=== PATIENT | male | born 1965 | race Caucasian/White ===

== ENCOUNTER 2017-03-03 13:04 | Emergency (ER) | payer BC ==
[2017-03-03] MEDS ORDERED: SODIUM CHLORIDE 0.9% 1,000 ML IV STA (13:16)
[2017-03-03] MEDS ORDERED: KETOROLAC 30 MG/ML 1 ML VIAL IVP STA (13:27)
--- NOTE | 2017-03-03 13:36 | ED ---
Abdominal Pain HPI - General Chief Complaint: Abdominal Pain Stated Complaint: kidney stone Source: patient, RN notes reviewed Mode of arrival: ambulatory Limitations: no limitations - History of Present Illness Initial Comments: 51-year-old male presents emergency Department with chief complaint of right flank pain. Patient states pain started on Sunday progressive worse. Patient states it started in one 5 aspect of his abdomen states now right flank pain. Patient states his head history kidney stones and the pain seems similar. Patient still had some nausea vomiting. He also states that he said decreased urine output and some hesitancy. Denies any dysuria, fever, chills, diarrhea constipation. Patient has no chest pain or shortness of breath. Patient states nothing makes the pain feel better or worse at this time. Patient did admit that the pain waxes and wanes. - Related Data Previous Rx's Medication Instructions Recorded Ciprofloxacin HCl [Cipro] 500 mg PO Q12HR #14 tablet 03/03/17 Hydrocodone/Acetaminophen [[place] 1 tab PO Q6HR PRN #20 tab 03/03/17 5-325] Ondansetron Odt [Zofran Odt] 4 mg PO Q8HR PRN #10 tab 03/03/17 Tamsulosin [Flomax] 0.4 mg PO DAILY #7 cap 03/03/17 Allergies Allergy/AdvReac Type Severity Reaction Status Date / Time No Known Allergies Allergy Verified 03/03/17 14:19 Review of Systems ROS Statement: Those systems with pertinent positive or pertinent negative responses have been documented in the HPI. ROS Other: All systems not noted in ROS Statement are negative. Past Medical History Past Medical History: No Reported History Additional Past Medical History / Comment(s): kidney stones History of Any Multi-Drug Resistant Organisms: None Reported Past Surgical History: No Surgical Hx Reported Past Psychological History: No Psychological Hx Reported Smoking Status: Never smoker Past Alcohol Use History: None Reported Past Drug Use History: None Reported General Exam Limitations: no limitations General appearance: alert, in no apparent distress Respiratory exam: Present: normal lung sounds bilaterally. Absent: respiratory distress, wheezes, rales, rhonchi, stridor Cardiovascular Exam: Present: regular rate, normal rhythm, normal heart sounds. Absent: systolic murmur, diastolic murmur, rubs, gallop, clicks GI/Abdominal exam: Present: soft, tenderness (Mild tenderness right flank), normal bowel sounds. Absent: distended, guarding, rebound, rigid Back exam: Absent: CVA tenderness (R), CVA tenderness (L) Neurological exam: Present: alert, oriented X3, CN II-XII intact Skin exam: Present: warm, dry, intact, normal color. Absent: rash Course Vital Signs 03/03/17 13:06 Temperature 97.4 F L Pulse Rate 91 Respiratory 16 Rate Blood Pressure 168/87 O2 Sat by Pulse 99 Oximetry Medical Decision Making - Medical Decision Making 51-year-old male present emergency from for right flank pain. Patient is a 5 mm stone on x-ray. Patient has white cells concern from possible early signs of infection. Patient with an antibiotic given pain medication if his symptoms return. Patient states is essentially pain-free at this time. Patient's had no reported fever afebrile here. Patient will follow-up with urology if symptoms do not improve return parameters discussed - Lab Data Result diagrams: 03/03/17 13:30 03/03/17 13:30 Lab Results 03/03/17 03/03/17 03/03/17 Range/Units 13:30 13:30 14:11 WBC 8.6 (3.8-10.6) k/uL RBC 4.67 (4.30-5.90) m/uL Hgb 14.5 (13.0-17.5) gm/dL Hct 40.8 (39.0-53.0) % MCV 87.3 (80.0-100.0) fL MCH 31.1 (25.0-35.0) pg MCHC 35.6 (31.0-37.0) g/dL RDW 13.3 (11.5-15.5) % Plt Count 184 (150-450) k/uL Neutrophils % 86 % Lymphocytes % 8 % Monocytes % 5 % Eosinophils % 0 % Basophils % 0 % Neutrophils # 7.4 (1.3-7.7) k/uL Lymphocytes # 0.7 L (1.0-4.8) k/uL Monocytes # 0.4 (0-1.0) k/uL Eosinophils # 0.0 (0-0.7) k/uL Basophils # 0.0 (0-0.2) k/uL Sodium 141 (137-145) mmol/L Potassium 4.3 (3.5-5.1) mmol/L Chloride 105 (98-107) mmol/L Carbon Dioxide 27 (22-30) mmol/L Anion Gap 9 mmol/L BUN 16 (9-20) mg/dL Creatinine 1.20 (0.66-1.25) mg/dL Est GFR (MDRD) Af Amer >60 (>60 ml/min/1.73 sqM) Est GFR (MDRD) Non-Af >60 (>60 ml/min/1.73 sqM) Glucose 80 (74-99) mg/dL Calcium 9.7 (8.4-10.2) mg/dL Total Bilirubin 1.8 H (0.2-1.3) mg/dL AST 24 (17-59) U/L ALT 32 (21-72) U/L Alkaline Phosphatase 76 (38-126) U/L Total Protein 7.4 (6.3-8.2) g/dL Albumin 4.5 (3.5-5.0) g/dL Amylase 32 (30-110) U/L Lipase 56 (23-300) U/L Urine Color Yellow Urine Appearance Clear (Clear) Urine pH 5.0 (5.0-8.0) Ur Specific [place] 1.020 (1.001-1.035) Urine Protein Trace H (Negative) Urine Glucose (UA) Negative (Negative) Urine Ketones Negative (Negative) Urine Blood Negative (Negative) Urine Nitrite Negative (Negative) Urine Bilirubin Negative (Negative) Urine Urobilinogen <2.0 (<2.0) mg/dL Ur Leukocyte Esterase Small H (Negative) Urine WBC 8 H (0-5) /hpf Ur Squamous Epith Cells 1 (0-4) /hpf Hyaline Casts 18 H (0-2) /lpf Urine Mucus Moderate H (None) /hpf Disposition Clinical Impression: Kidney stone Disposition: HOME SELF-CARE Condition: Stable Instructions: Kidney Stones (ED) Additional Instructions: Please return to the Emergency Department if symptoms worsen or any other concerns. Prescriptions: Ciprofloxacin HCl [Cipro] 500 mg PO Q12HR #14 tablet Hydrocodone/Acetaminophen [[place] 5-325] 1 tab PO Q6HR PRN #20 tab PRN Reason: Pain Ondansetron Odt [Zofran Odt] 4 mg PO Q8HR PRN #10 tab PRN Reason: Nausea Tamsulosin [Flomax] 0.4 mg PO DAILY #7 cap Referrals: None,Stated [Primary Care Provider] - 1-2 days Time of Disposition: 15:01
[2017-03-03 13:42] LABS: Basophils % (A) 0 %; CH 30.6; CHCM 35.2; Eosinophils % (A) 0 %; HCT 40.8 % (39.0-53.0); HDW 2.63; HGB 14.5 gm/dL (13.0-17.5); Luc # (Auto) 0.08; Luc % (Auto) 1; Lymphocytes # (A) 0.7 k/uL (1.0-4.8); Lymphocytes % (A) 8 %; MCH 31.1 pg (25.0-35.0); MCHC 35.6 g/dL (31.0-37.0); MCV 87.3 fL (80.0-100.0); Mean Platelet Volume 8.3; Monocytes # (A) 0.4 k/uL (0-1.0); Monocytes % (A) 5 %; Neutrophils # (A) 7.4 k/uL (1.3-7.7); Neutrophils % (A) 86 %; RBC 4.67 m/uL (4.30-5.90); RDW 13.3 % (11.5-15.5); WBC 8.6 k/uL (3.8-10.6)
[2017-03-03 13:53] LABS: ALT 32 U/L (21-72); AST 24 U/L (17-59); Alkaline Phosphatase 76 U/L (38-126); Amylase 32 U/L (30-110); Anion Gap 9 mmol/L; Blood Urea Nitrogen 16 mg/dL (9-20); Calcium 9.7 mg/dL (8.4-10.2); Carbon Dioxide 27 mmol/L (22-30); Chloride 105 mmol/L (98-107); Glucose 80 mg/dL (74-99); Non-African American GFR(MDRD) >60 (>60 ml/min/1.73 sqM); Potassium 4.3 mmol/L (3.5-5.1); Sodium 141 mmol/L (137-145); Total Bilirubin 1.8 mg/dL (0.2-1.3); Total Protein 7.4 g/dL (6.3-8.2)
--- NOTE | 2017-03-03 13:58 | XR ---
EXAMINATION TYPE: XR KUB DATE OF EXAM: 03/03/2017 COMPARISON: 10/28/2012 HISTORY: Abdominal pain TECHNIQUE: 2 views FINDINGS: Bowel gas pattern is normal. There is no sign of intestinal obstruction or pneumoperitoneum . Fecal pattern is normal. There is possible 5 mm calcification over the right kidney. Lung bases are clear. There is no sign of a mass. IMPRESSION: Possible right renal calculus that appears new compared to old exam. There is clearing of calcification over the left kidney compared to old exam.
[2017-03-03] MEDS ORDERED: SODIUM CHLORIDE 0.9% 1,000 ML IV ONE (14:12)
[2017-03-03 14:37] LABS: Appearance,Urine Clear (Clear); Bilirubin,Urine Negative (Negative); Glucose,Urine (UA) Negative (Negative); Ketones,Urine Negative (Negative); Leukocyte Esterase,Urine Small (Negative); Mucus,Urine Moderate /hpf; Nitrite,Urine Negative (Negative); Particle Count 5173; Protein,Urine Trace (Negative); Squamous Epithelial Cell,Urine 1 /hpf (0-4); UA Billing (MACRO vs. MICRO) MICRO; Urobilinogen,Urine <2.0 mg/dL (<2.0); WBC,Urine 8 /hpf (0-5)
[2017-03-03 15:13] VITALS: BP 134/87; PULSE 70; RESP 18; TEMP 98.3
== END 2017-03-03 15:19 | disposition home or self-care (01) ==
LOC: EC 13:04
DX: N20.0 Calculus of kidney (principal); R11.2 Nausea with vomiting, unspecified
CPT/HCPCS: 99284; 96374; 96361 ×2; 51798; 36415; 80053; 82150; 83690; 85025; 81001; 87086; 74000; J1885

== ENCOUNTER 2017-12-07 04:09 | Emergency (ER) | payer BC ==
[2017-12-07] MEDS ORDERED: ONDANSETRON 4 MG/2 ML VIAL IVP STA (04:50)
[2017-12-07] MEDS ORDERED: MORPHINE SULFATE 4 MG/0.8 ML SYRINGE (INJ) IV STA (04:50)
[2017-12-07] MEDS ORDERED: SODIUM CHLORIDE 0.9% 2,000 ML IV STA (04:50)
[2017-12-07] MEDS ORDERED: SODIUM CHLORIDE 0.9% 1,000 ML IV STA (04:50)
[2017-12-07 05:07] LABS: Basophils % (A) 0 %; Eosinophils % (A) 1 %; HCT 41.4 % (39.0-53.0); HGB 14.5 gm/dL (13.0-17.5); Lymphocytes # (A) 0.5 k/uL (1.0-4.8); Lymphocytes % (A) 8 %; MCH 29.3 pg (25.0-35.0); MCV 83.6 fL (80.0-100.0); Mean Platelet Volume 7.3; Monocytes # (A) 0.3 k/uL (0-1.0); Monocytes % (A) 5 %; Neutrophils # (A) 5.9 k/uL (1.3-7.7); Neutrophils % (A) 86 %; Platelet Count 184 k/uL (150-450); RBC 4.96 m/uL (4.30-5.90); RDW 12.7 % (11.5-15.5); WBC 6.9 k/uL (3.8-10.6)
[2017-12-07 05:18] LABS: ALT 28 U/L (21-72); AST 22 U/L (17-59); Albumin 4.5 g/dL (3.5-5.0); Alkaline Phosphatase 76 U/L (38-126); Amylase 43 U/L (30-110); Anion Gap 14 mmol/L; Blood Urea Nitrogen 17 mg/dL (9-20); C Reactive Protein 5.1 mg/L (<10.0); Calcium 9.7 mg/dL (8.4-10.2); Carbon Dioxide 25 mmol/L (22-30); Chloride 102 mmol/L (98-107); Glucose 171 mg/dL (74-99); Lipase 58 U/L (23-300); Potassium 3.9 mmol/L (3.5-5.1); Sodium 141 mmol/L (137-145); Total Bilirubin 1.3 mg/dL (0.2-1.3); Total Protein 7.1 g/dL (6.3-8.2)
[2017-12-07 05:23] VITALS: RESP 18
--- NOTE | 2017-12-07 05:51 | CT ---
EXAM: CT Abdomen and Pelvis Without Intravenous Contrast CLINICAL HISTORY: Right flank pain TECHNIQUE: Axial computed tomography images of the abdomen and pelvis without intravenous contrast. CTDI is 10 mGy and DLP is 600 mGy-cm. This CT exam was performed using one or more of the following dose reduction techniques: automated exposure control, adjustment of the mA and/or kV according to patient size, and/or use of iterative reconstruction technique. COMPARISON: June 07, 2017. FINDINGS: Lung bases: Unremarkable. No mass. No consolidation. ABDOMEN: Liver: Unremarkable. Gallbladder and bile ducts: Unremarkable. No calcified stones. No ductal dilation. Pancreas: Unremarkable. No ductal dilation. Spleen: Unremarkable. No splenomegaly. Adrenals: Unremarkable. No mass. Kidneys and ureters: 1 cm stone at the junction of the proximal and middle thirds of the right ureter resulting in mild right hydronephrosis with perinephric stranding. Nonobstructive left renal stones. Bilateral renal cysts. Stomach and bowel: Unremarkable. No obstruction. No mucosal thickening. PELVIS: Appendix: Normal appendix. Bladder: Unremarkable. No stones. Reproductive: Unremarkable as visualized. ABDOMEN and PELVIS: Intraperitoneal space: Unremarkable. No free air. No significant fluid collection. Bones/joints: No acute fracture. No dislocation. Soft tissues: Unremarkable. Vasculature: Unremarkable. No abdominal aortic aneurysm. Lymph nodes: Unremarkable. No enlarged lymph nodes. IMPRESSION: 1 cm obstructive stone at the junction of the proximal and middle thirds of the right ureter with mild right hydronephrosis. Underlying infection not excluded. Nonobstructive bilateral renal stones. Normal appendix.
[2017-12-07] MEDS ORDERED: cefTRIAXone 2,000 MG in SODIUM CHLORIDE 0.9% 100 ML IVPB STA (06:09)
--- NOTE | 2017-12-07 06:15 | ED ---
Abdominal Pain HPI - General Chief Complaint: Abdominal Pain Stated Complaint: Male Time Seen by Provider: 12/07/17 04:44 Source: patient, family Mode of arrival: ambulatory Limitations: no limitations - History of Present Illness Initial Comments: 52 years old male with a history of for kidney stone presents with right flank pain, pain radiates down to THE right groin area this started down since 9 PM last night he been nauseous him a he threw up twice and he feels that there is stone since his previous pain was quite similar. He denies any headaches no neck pain no chest pain or shortness of breath doesn't abdominal pain or flank pain he said he been having hard time voiding no symptoms of TIA or CVA - Related Data Previous Rx's Medication Instructions Recorded Ciprofloxacin HCl [Cipro] 500 mg PO Q12HR #14 tablet 12/07/17 HYDROmorphone [Dilaudid] 1 mg PO Q4HR PRN #15 tab 12/07/17 Allergies Allergy/AdvReac Type Severity Reaction Status Date / Time No Known Allergies Allergy Verified 12/07/17 04:17 Review of Systems ROS Statement: Those systems with pertinent positive or pertinent negative responses have been documented in the HPI. ROS Other: All systems not noted in ROS Statement are negative. Past Medical History Past Medical History: No Reported History Additional Past Medical History / Comment(s): kidney stones History of Any Multi-Drug Resistant Organisms: None Reported Past Surgical History: No Surgical Hx Reported Additional Past Surgical History / Comment(s): "cyst removed from colon" Past Psychological History: No Psychological Hx Reported Smoking Status: Never smoker General Exam - General Exam Comments Initial Comments: General: The patient is awake he is quite uncomfortable with the pain. Skin: Skin is warm and dry and no rashes or lesions are noted. Eye: Pupils are equal, round and reactive to light, extra-ocular movements are intact; there is normal conjunctiva bilaterally. Ears, nose, mouth and throat: There are moist mucous membranes and no oral lesions. Neck: The neck is supple, there is no tenderness or JVD. Cardiovascular: There is a regular rate and rhythm. No murmur, rub or gallop is appreciated. Respiratory: To auscultation bilateral, no wheezing no rhonchi no distress respiratory tay noticed Gastrointestinal: And over the right lower quadrant area and the right flank area Back: There is no tenderness to palpation in the midline. There is no obvious deformity. Musculoskeletal: Normal ROM, no tenderness, There is no pedal edema. There is no calf tenderness or swelling. No cords were appreciated. Neurological: CN II-XII intact, Cranial nerves III through XII are intact. There are no obvious motor or sensory deficits. Coordination appears grossly intact. Speech is normal. Psychiatric: Cooperative, appropriate mood & affect, normal judgment. Limitations: no limitations Course Vital Signs 12/07/17 12/07/17 04:13 05:06 Temperature 98.4 F Pulse Rate 82 83 Respiratory 20 18 Rate Blood Pressure 174/91 149/89 O2 Sat by Pulse 99 97 Oximetry She was reassessed at around 6 AM, noticed CBC is unremarkable, comprehensive metabolic panel is unremarkable, CT of the abdomen showed 1 cm stone in the right ureter causing mild hydronephrosis, IV was started on his arrival he got some fluids along with pain medications will see if pain medications or controlling his symptoms and will send him home to follow with urology as outpatient and pain management is in adequate with the morphine on board admitted. I had a detailed discussion with the patient, sent wants to go home and would follow with the Dr. Balderrama him and he be medicine, Dilaudid 1 mg by mouth 3 times a day as needed and Cipro 500 mg twice daily #14 Medical Decision Making - Lab Data Result diagrams: 12/07/17 04:42 12/07/17 04:42 Lab Results 12/07/17 12/07/17 12/07/17 Range/Units 04:42 04:42 05:10 WBC 6.9 (3.8-10.6) k/uL RBC 4.96 (4.30-5.90) m/uL Hgb 14.5 (13.0-17.5) gm/dL Hct 41.4 (39.0-53.0) % MCV 83.6 (80.0-100.0) fL MCH 29.3 (25.0-35.0) pg MCHC 35.0 (31.0-37.0) g/dL RDW 12.7 (11.5-15.5) % Plt Count 184 (150-450) k/uL Neutrophils % 86 % Lymphocytes % 8 % Monocytes % 5 % Eosinophils % 1 % Basophils % 0 % Neutrophils # 5.9 (1.3-7.7) k/uL Lymphocytes # 0.5 L (1.0-4.8) k/uL Monocytes # 0.3 (0-1.0) k/uL Eosinophils # 0.0 (0-0.7) k/uL Basophils # 0.0 (0-0.2) k/uL Sodium 141 (137-145) mmol/L Potassium 3.9 (3.5-5.1) mmol/L Chloride 102 (98-107) mmol/L Carbon Dioxide 25 (22-30) mmol/L Anion Gap 14 mmol/L BUN 17 (9-20) mg/dL Creatinine 1.00 (0.66-1.25) mg/dL Est GFR (CKD-EPI)AfAm >90 (>60 ml/min/1.73 sqM) Est GFR (CKD-EPI)NonAf 87 (>60 ml/min/1.73 sqM) Glucose 171 H (74-99) mg/dL Plasma Lactic Acid [place] 1.5 (0.7-2.0) mmol/L Calcium 9.7 (8.4-10.2) mg/dL Total Bilirubin 1.3 (0.2-1.3) mg/dL AST 22 (17-59) U/L ALT 28 (21-72) U/L Alkaline Phosphatase 76 (38-126) U/L C-Reactive Protein 5.1 (<10.0) mg/L Total Protein 7.1 (6.3-8.2) g/dL Albumin 4.5 (3.5-5.0) g/dL Amylase 43 (30-110) U/L Lipase 58 (23-300) U/L Disposition Clinical Impression: Calculus of right ureter Disposition: HOME SELF-CARE Condition: Good Instructions: Flank Pain (ED) Additional Instructions: Patient is advised to come back to the ER if he develops fever chills nausea vomiting or pain gets worse, he understands that and he agrees with Prescriptions: Ciprofloxacin HCl [Cipro] 500 mg PO Q12HR #14 tablet HYDROmorphone [Dilaudid] 1 mg PO Q4HR PRN #15 tab PRN Reason: Pain Is patient prescribed a controlled substance at d/c from ED?: Yes If prescribed controlled substance>3 days was MAPS reviewed?: No When asked, does pt state using other controlled substances?: No Referrals: Donnell Cohen MD [Primary Care Provider] - 1-2 days
[2017-12-07 06:21] LABS: Appearance,Urine Clear (Clear); Bacteria,Urine Rare /hpf; Bilirubin,Urine Negative (Negative); Blood,Urine Small (Negative); Budding Yeast,Urine Few /hpf; Color,Urine Yellow; Glucose,Urine (UA) 1+ (Negative); Ketones,Urine Negative (Negative); Leukocyte Esterase,Urine Negative (Negative); Mucus,Urine Rare /hpf; Nitrite,Urine Negative (Negative); PH, Urine 6.5 (5.0-8.0); Protein,Urine Trace (Negative); RBC,Urine 31 /hpf (0-5); Specific Gravity,Urine 1.018 (1.001-1.035); Squamous Epithelial Cell,Urine <1 /hpf (0-4); Urobilinogen,Urine <2.0 mg/dL (<2.0); WBC,Urine 1 /hpf (0-5)
[2017-12-07 07:52] VITALS: BP 153/80; PULSE 77; TEMP 98
== END 2017-12-07 07:54 | disposition home or self-care (01) ==
LOC: EC 04:09
DX: N13.2 Hydronephrosis with renal and ureteral calculous obstruction (principal); Z98.890 Other specified postprocedural states
CPT/HCPCS: 99284; 96365; 96375 ×2; 96361; 36415; 80053; 82150; 83605; 83690; 85025; 86140; 81001; 87086; 74176; J2405; J0696; J2270

== ENCOUNTER → 2017-12-24 | Outpatient (CLI) | payer BC ==
--- NOTE | 2017-12-24 15:56 | XR ---
EXAMINATION TYPE: XR KUB DATE OF EXAM: 12/24/2017 COMPARISON: 03/03/2017 HISTORY: One week post lithotripsy TECHNIQUE: One view abdominal series FINDINGS: The osseous structures are intact. The bowel gas pattern is nonspecific. Extensive overlying fecal d ebris obscures the right renal outline. Left kidney: There are least 2 cysts small calcifications involving the mid and lower pole the left k idney with the largest measuring approximately 3.3 mm. No definite suspicious calcifications are seen in the paraspinal line. Right kidney: Outline is obscured by extensive retained fecal debris. However, within the upper judie n of the pelvis on the right is a questionable calcification which may be similar morphology to the p reviously noted right renal calculus. This could represent a right ureteral calculus. Pelvis: Calcification the pelvis on the left likely is vascular. IMPRESSION: 1. There are 2 small calcifications overlying the lower pole the left kidney. 2. The right renal outline is limited due to extensive retained fecal debris. Previously noted calcif ication is not seen with certainty. However, overlying the S2 level on the right there does appear to be a calcification similar morphology of the previously noted right renal calculus which could repre sent distal migration of the calculus.
== END ==
LOC: RADXRMAIN 15:26
PROVIDERS: ATTEND Urology
DX: N40.0 Benign prostatic hyperplasia without lower urinary tract symptoms (principal)
CPT/HCPCS: 74018

== ENCOUNTER → 2017-12-25 | Outpatient (CLI) | payer BC | END | disposition home or self-care (01) | LOC: RADXRMAIN 13:22 | PROVIDERS: ATTEND Urology | DX: Z53.9 Procedure and treatment not carried out, unspecified reason (principal) ==

== ENCOUNTER 2017-12-31 08:12 | Day surgery (SDC) | payer BC ==
[2017-12-25 14:19] VITALS: BMI 28.5
[~2017-12-31 08:12] MED LIST: DEXAMETHASONE SOD PHOSPHATE 10 MG/ML 1 ML VIAL IV ONE; LACTATED RINGERS 1,000 ML IV SCH; LIDOCAINE 1% 20 ML VIAL (10MG/ML) FOR IV START INTRADERMA PRN; MORPHINE SULFATE 4 MG/ML SYRINGE IV PRN; ONDANSETRON 4 MG/2 ML VIAL IVP ONE; Pre Op ABX Message 1 EACH MISC MISCELLANE ONE
[2017-12-31 08:52] VITALS: RESP 16; TEMP 97.3
--- NOTE | 2017-12-31 09:03 | XR ---
Abdomen HISTORY: Preop, right-sided kidney stones Frontal view of the abdomen on 2 images correlated to prior abdomen 12/24/2017, CT abdomen pelvis 12/07 Calcifications are again noted over the left kidney however bowel gas obscures detail. Calcifications are again noted within the pelvis, the calcification previously identified over the right sacral ala may still be present. Lung bases are clear. No pneumoperitoneum. IMPRESSION: Nephrolithiasis, possible distal right ureteral calculus.
[2017-12-31] MEDS ORDERED: KETAMINE 10 MG/ML 20 ML VIAL ONE (09:11)
[2017-12-31] MEDS ORDERED: LIDOCAINE 1% INJ 10MG/ML (20 ML MDV) ONE (09:11)
[2017-12-31] MEDS ORDERED: PROPOFOL 10 MG/ML 20 ML VIAL IV ONE (09:11)
[2017-12-31] MEDS ORDERED: MIDAZOLAM 2 MG/2 ML VIAL ONE (09:11)
[2017-12-31] MEDS ORDERED: GLYCOPYRROLATE 0.2 MG/ML 2 ML VIAL ONE (09:11)
[2017-12-31] MEDS ORDERED: fentaNYL (PF) 50 MCG/ML 2 ML AMP ONE (09:11)
--- NOTE | 2017-12-31 09:47 | P.OP ---
Date of Procedure: 12/31/17 Preoperative Diagnosis: Right ureteral stone Postoperative Diagnosis: Same Procedure(s) Performed: Extracorporeal shockwave lithotripsy, 2000 shocks at energy level Anesthesia: MAC Surgeon: Isidoro Powers Pathology: none sent Disposition: PACU Indications for Procedure: The patient is 52. He has a history of an upper ureteral stone treated with shockwave lithotripsy. He developed a 5 mm distal fragment that has not passed. He comes for repeat shockwave lithotripsy Description of Procedure: Patient brought to the operating suite and placed on the lithotripsy table in the supine position. The stone was seen in 2 views of fluoroscopy and the distal ureter. 2000 shocks at energy level are administered the stone fractures nicely. Then cc awake and returned recovery condition. Discharged home upon recovery.
[2017-12-31 10:12] VITALS: BP 150/92; PULSE 70
== END 2017-12-31 11:00 | disposition home or self-care (01) ==
LOC: ORWHC2ENDO 08:12
PROVIDERS: ATTEND Urology
DX: N20.2 Calculus of kidney with calculus of ureter (principal); I10 Essential (primary) hypertension; Z79.2 Long term (current) use of antibiotics; Z79.891 Long term (current) use of opiate analgesic
CPT/HCPCS: 74018; 50590; J2250; J2001; J3010; J2704

== ENCOUNTER → 2018-01-04 | Outpatient (CLI) | payer BC ==
--- NOTE | 2018-01-04 10:46 | XR ---
Abdomen HISTORY: Lithotripsy performed for calculus of kidney Frontal view of the abdomen submitted on 2 images and correlated to prior exam 12/31/2017 There is a large amount of overlying bowel gas which obscures detail. Calcifications are thought pres ent within the left kidney is similar distribution. Suspect there is a calcification superimposed ove r the right sacral ala measuring approximately 6 mm in size. Smaller calcification may be present jus t cephalad at this level. No evident pneumoperitoneum or bowel obstruction. No significant change. IMPRESSION: Left-sided nephrolithiasis, interval lithotripsy findings, calcification may be within th e distal ureter on the right with limitations as described.
== END | disposition home or self-care (01) ==
LOC: RADXRMAIN 08:48
PROVIDERS: ATTEND Urology
DX: N20.0 Calculus of kidney (principal)
CPT/HCPCS: 74018

== ENCOUNTER → 2018-02-06 | Outpatient (CLI) | payer BC ==
--- NOTE | 2018-02-07 09:36 | XR ---
Abdomen HISTORY: Follow-up right kidney stone Frontal view of the abdomen correlated to prior exam 01/04/[address] 12/07/2017 There is extensive bowel gas, possible retained stool overlying the kidneys which obscures detail. Ph lebolith present in the left hemipelvis. No evident bowel obstruction or pneumoperitoneum. Calcificat ion overlying the sacrum on the right on previous exam is not seen with certainty. Left-sided renal c alcifications are present. IMPRESSION: Correlate for fecal stasis. Left nephrolithiasis. Distal right ureteral calculus no longe r evident.
== END | disposition home or self-care (01) ==
LOC: RADXRMAIN 16:49
PROVIDERS: ATTEND Urology
DX: N20.0 Calculus of kidney (principal)
CPT/HCPCS: 74018